=== PATIENT | male | born 1985 | race Caucasian/White ===

== ENCOUNTER → 2017-11-27 10:14 | Outpatient (CLI) | payer OTHER, SELFPAY ==
--- NOTE | 2017-11-27 | DI.MRI.S_ITS ---
PROCEDURE: MR CERVICAL SPINE WO CON INDICATIONS: NECK PAIN TECHNIQUE: Noncontrast sagittal T1 spin echo and T2 fast spin echo, sagittal STIR, foraminal oblique sagittal T2 fast spin echo, and axial gradient echo or T2 fast spin echo through the cervical spine. COMPARISON: None. FINDINGS: Image quality: Diagnostic. Spinal Cord: Visualized spinal cord has normal size and signal. No cerebellar tonsillar herniation. The imaged midline intracranial structures are grossly unremarkable. Paraspinous Soft Tissues: No paravertebral masses. Prevertebral soft tissues are normal in thickness. No definite lymphadenopathy is identified. Bones: The vertebral body heights and marrow signal are well-maintained. There is no evidence of an acute fracture or dislocation. No suspicious osseous lesions are identified. C2-C3: There is no significant disc bulge or facet arthropathy. No central canal or neural foraminal stenosis is evident. C3-C4: There is mild diffuse disc bulge and uncovertebral hypertrophic changes without significant facet arthrosis. There is no central canal or neural foraminal narrowing. C4-C5: There is mild disc desiccation and early uncovertebral hypertrophic changes. Mild to moderate bilateral facet arthrosis is noted (right greater than left). However, there is no central canal or neural foraminal narrowing. C5-C6: There is disc desiccation without significant disc bulge. A small annular fissure may be present at this level. There may be mild facet arthrosis. There is no central canal or neural foraminal narrowing. C6-C7: There is mild disc desiccation with associated mild bilateral facet arthrosis. There is no central canal stenosis. There may be minimal neural foraminal narrowing. C7-T1: There is no significant disc bulge or facet arthropathy. No central canal or neural foraminal stenosis is evident. IMPRESSION: 1. Mild degenerative changes of the cervical spine. 2. No focal disc protrusions or extrusions. 3. Possible small annular fissure along the dorsal aspect of the C5-6 intervertebral disc. 4. Minimal neural foraminal narrowing at C6-7. Dictated by: Enrique Flood M.D. on 11/27/2017 at 10:47 Approved by: Enrique Flood M.D. on 11/27/2017 at 10:56
== END ==
PROVIDERS: Family Provider Physician Assistant Medical; PCP Physician Assistant Medical; Visit Provider Physician Assistant Medical
DX: M50.30 Other cervical disc degeneration, unspecified cervical region (principal); M99.71 Connective tissue and disc stenosis of intervertebral foramina of cervical region
CPT/HCPCS: 72141